=== PATIENT | male | born 1990 | race Caucasian/White ===

== ENCOUNTER 2017-04-15 01:18 | Emergency (ER) | payer OTHER ==
[~2017-04-15] VITALS: Ht 175.3 cm; Wt 113.4 kg
[2017-04-15 01:30] VITALS: BP 185/74
--- NOTE | 2017-04-15 01:42 | PHYS DOC ---
Past Medical History Past Medical History: No Pertinent History, Unknown Past Surgical History: Other Additional Past Surgical Histo: UNKNOWN Alcohol Use: None Additional Information: UNKNOWN ETOH USE Drug Use: Methamphetamine Adult General Chief Complaint Chief Complaint: HYPERVENTILATION HPI HPI Patient is a 27 year old with history of substance abuse brought in in police custody who presents with request for medical screening exam. Patient was found sleeping in a car he had allegedly stolen. Upon arrest, patient began to hyperventilate . the was no witnessed ingestion of contraband. Patient requesting medical evaluation. Blood sugar prior to ED arrival is 80 per EMS. On ED arrival, the patient's anxious with episodes of hyperventilation, paranoid and requesting "Marti, where is Marti?' Patient's alert oriented person and place. He has fluent and coherent and pressured speech. Vital signs are normal with tachypnea when hyperventilating. Presentation is consistent with suspected drug abuse. Patient discharged to custody of police in stable condition with recommendations to follow-up with PCP and rehab. Review of Systems Review of Systems ROS as per HPI. Allergies Allergies Allergies Coded Allergies Type Severity Reaction Last Updated Verified Unable to Assess 04/15/17 No Physical Exam Physical Exam Constitutional: Well developed, well nourished, anxious, paranoid. [] HENT: Normocephalic, healing wound on right temporal scalp with pam in place ,, bilateral external ears normal, oropharynx moist, no oral exudates, nose normal. [] Eyes: PERRLA, EOMI, conjunctiva injected. [] Neck: Normal range of motion, no tenderness, supple, no stridor. [] Cardiovascular:Heart rate regular rhythm, no murmur. [] Lungs & Thorax: Tachypnea, hyperventilation. [] Abdomen: Bowel sounds normal, soft. [] Skin: Warm, dry.[] Back: No tenderness. [] Extremities: No tenderness. [] Neurologic: Alert and oriented X 2, normal motor function, normal sensory function, no focal deficits noted. [] Psychologic: Affect, anxious. [] EKG EKG [] Radiology/Procedures Radiology/Procedures [] Course & Med Decision Making Course & Med Decision Making Pertinent Labs and Imaging studies reviewed. (See chart for details) [Encounter for medical screening exam. Patient is stable to discharge from the ED with recommendations of following up with drug rehabilitation and PCP.] Esther Disclaimer Dragon Disclaimer This electronic medical record was generated, in whole or in part, using a voice recognition dictation system. Departure Departure Impression: Primary Impression: Encounter for medical screening examination Additional Impressions: Substance abuse Paranoia Disposition: 01 HOME, SELF-CARE Condition: STABLE Patient Instructions: Hyperventilation Additional Instructions: If you continue to breathe fast, you will get dizzy, become confused and pass out. slow down your breathing. Only take medications that are prescribed to you and do not use any street drugs. Follow up with rehab and PCP upon release from [facility]. Problem Qualifiers JAE SMALL DO Apr 15, 2017 01:42
== END 2017-04-15 01:57 | disposition home or self-care (01) ==
LOC: EEVIPCON 01:18 → ER 01:18
DX: Z00.8 Encounter for other general examination (principal); F15.10 Other stimulant abuse, uncomplicated; F22 Delusional disorders; R06.4 Hyperventilation; F10.10 Alcohol abuse, uncomplicated
CPT/HCPCS: 99283